=== PATIENT | female | born 1990 | race Caucasian/White ===

== ENCOUNTER 2020-10-08 10:27 | Outpatient (CLI) | payer OTHER ==
[2020-10-08 10:58] VITALS: BP 117/66
[2020-10-08 11:01] LABS: BILIRUBIN,URINE NEGATIVE (NEGATIVE); CLARITY,URINE CLEAR (CLEAR); GLUCOSE, URINE (UA) NEGATIVE (NEGATIVE); KETONES,URINE (UA) NEGATIVE (NEGATIVE); LEUKOCYTE ESTERASE, URINE TRACE (NEGATIVE); NITRITE,URINE NEGATIVE (NEGATIVE); OCCULT BLOOD,URINE NEGATIVE (NEGATIVE); PH,URINE 7.5 PH (5.0-7.5); PROTEIN,URINE NEGATIVE (NEGATIVE); UROBILINOGEN,URINE 0.2 (NORMAL) E.U./dL (NORMAL)
[2020-10-08 11:12] LABS: BACTERIA,URINE Rare /HPF (None Seen); RBC,URINE None Seen /HPF (0-5); SQUAMOUS EPITHELIAL CELL,UR FEW Squamous (<= Few); WBC,URINE 0-3 /HPF (0-5)
[2020-10-08 11:20] LABS: RUPTURE OF MEMBRANES PLUS NEGATIVE (NEGATIVE)
--- NOTE | 2020-10-08 12:23 | PROVIDER PROGRESS NOTE ---
- HPI Chief Complaint: Leakage of vaginal fluid Current : Current EDU 02/06/21 Gestation 22 Weeks and 5 Days 1 Para 0 Vital Signs Temperature 99.9 F 10/08/20 10:50 Heart Rate 90 10/08/20 10:50 Respiratory Rate 18 10/08/20 10:50 Blood Pressure 117/66 10/08/20 10:50 O2 Saturation 100 10/08/20 10:50 Temperature 99.9 F 10/08/20 10:50 Heart Rate 90 10/08/20 10:50 Respiratory Rate 18 10/08/20 10:50 Blood Pressure 117/66 10/08/20 10:50 O2 Saturation 100 10/08/20 10:50 - Procedures NST Procedure: EFM 145 mod vr 10x10 and 15x15 accels with decels--> Appropriate for gestational age TOCO: quiet Service Date of procedure: 10/08/20 Procedure Details: Patient is a 29 yo at 22+5 wga here for rule out rupture. Patient received care by the [facility] at [facility]. She and partner are camping in [place] this weekend. Last ngiht patient had some cramping pain that was consistent with "stomach flu". No VB. Did nto progress. This am she pass some fluid that leaked through her undergarments and saoked her pants to about the size of her palm. No further leakage. No further cramping. L ast IC was more than a week ago. Endorses FM. records are not available to us at present. Patient denies significant past medical or surgical history. Reports to be uncomplicated. PMH: none PSH: none OB: G0 SOC HX: Lives in [place] in [facility]. ROS: As per HPI, otherwise remaining systems are negative. PE: VS: 99.9 90 117/66 18 100% GEN: NAD HEENT: NCAT CV: RR RESP: nl effrot ABD: S&NT/ND EXT: WWP NEURO: A&O PSYCH: appropriate affect EFM: 145 mod kiara 10x10 and 15x15 accels occ decels--> appropriate for gestational age TOCO: quiet ROM+ neg UA with trace LE; attributed to lochia. -Cultures pending A?P 29 yo at 22+5 with LOF No consistent fluid loss Neg ROM+ Likely reflects passage of urine No dysuria; will awaiting cultures for trt of any potential UTI Cramping resolved and self-limited Patient not concerned about cramping and is not interested in evaluation for PTL Reviewed warning signs indicating need to return to triage. Patient discharged to home FU with primary OB provider in the absence of recurrent symptoms.
== END 2020-10-08 11:40 | disposition home or self-care (01) ==
LOC: WFO 10:27 → EDBD 10:27 → FBP 10:31 → WFO 11:40
PROVIDERS: ATTEND Obstetrics & Gynecology
DX: O99.891 Other specified diseases and conditions complicating pregnancy (principal); R10.9 Unspecified abdominal pain
CPT/HCPCS: 81001; 84112; 87086; 99212; 99214

== ENCOUNTER 2021-01-14 02:28 | Inpatient (IN) | payer OTHER ==
[2021-01-14] MEDS ORDERED: AMPICILLIN 2 GM VIAL IV ONE (03:16)
[2021-01-14] MEDS ORDERED: LACTATED RINGERS 1,000 ML IV ONE (03:17)
[2021-01-14] MEDS ORDERED: miSOPROStoL 200 MCG TABLET ONE (03:17)
[2021-01-14] MEDS ORDERED: OXYTOCIN/SODIUM CHLORIDE 500 ML IV ONE (03:17)
[2021-01-14] MEDS ORDERED: OXYTOCIN/SODIUM CHLORIDE 500 ML IV PRN (03:34)
[2021-01-14] MEDS ORDERED: fentaNYL 100 MCG/2 ML VIAL IVP PRN (03:34)
[2021-01-14] MEDS ORDERED: CARBOPROST TROMETHAMINE 250 MCG/ML AMP IM PRN (03:34)
[2021-01-14] MEDS ORDERED: OXYTOCIN 10 UNIT/ML VIAL IM PRN (03:34)
[2021-01-14] MEDS ORDERED: SODIUM CHLORIDE FLUSH 0.9% 10 ML SYRINGE IVP PRN (03:34)
[2021-01-14] MEDS ORDERED: METHYLERGONOVINE 0.2 MG/ML VIAL IM PRN (03:34)
[2021-01-14] MEDS ORDERED: miSOPROStoL 200 MCG TABLET BC PRN (03:34)
[2021-01-14] MEDS ORDERED: LIDOCAINE-MPF 1% 30 ML VIAL ID PRN (03:34)
[2021-01-14] MEDS ORDERED: TRANEXAMIC ACID IN NACL 1,000 MG/100 ML BAG IV PRN (03:34)
[2021-01-14] MEDS ORDERED: ONDANSETRON 4 MG/2 ML VIAL IVP PRN ×2 (03:34→05:27)
[2021-01-14] MEDS ORDERED: AMPICILLIN 2 GM in SODIUM CHLORIDE 0.9% MINIBAG 100 ML IV ONE (03:34)
[2021-01-14 03:46] LABS: BASOPHILS % (AUTO) 0.3 %; EOSINOPHILS % (AUTO) 0.1 %; HGB - HEMOGLOBIN 11.2 g/dL (12.0-16.0); LYMPHOCYTES # (AUTO) 1.8 10^3/uL (1.5-3.5); MEAN CORPUSCULAR HEMOGLOBIN 31.7 pg (27.0-31.0); MEAN CORPUSCULAR VOLUME 99.2 fL (81.0-99.0); MEAN PLATELET VOLUME 11.2 fL (7.9-10.8); MONOCYTES # (AUTO) 0.8 10^3/uL (0.0-1.0); MONOCYTES % (AUTO) 6.2 %; NEUTROPHILS # (AUTO) 10.1 10^3/uL (1.5-6.6); NEUTROPHILS % (AUTO) 78.5 %; PLT - PLATELET COUNT 208 10^3/uL (130-450); RED BLOOD COUNT 3.53 10^6/uL (4.20-5.40); RED CELL DISTRIBUTION WIDTH 13.6 % (12.0-15.0); WHITE BLOOD COUNT 12.8 x10^3/uL (4.8-10.8)
[2021-01-14] MEDS ORDERED: LACTATED RINGERS 1,000 ML IV SCH ×2 (04:00→11:00)
[2021-01-14] MEDS ORDERED: ROPIVACAINE 0.2% 200 MG/100 ML BAG EP ONE (04:48)
[2021-01-14] MEDS ORDERED: ROPIVACAINE 0.2% 200 MG/100 ML BAG EP PRN (05:27)
[2021-01-14] MEDS ORDERED: diphenhydrAMINE INJ 50 MG/ML VIAL IVP PRN (05:27)
[2021-01-14] MEDS ORDERED: METOCLOPRAMIDE 10 MG/2 ML VIAL IVP PRN (05:27)
[2021-01-14] MEDS ORDERED: ePHEDrine 50 MG/ML VIAL IVP PRN (05:27)
[2021-01-14] MEDS ORDERED: NALOXONE 0.4 MG/ML VIAL IVP PRN (05:27)
[2021-01-14] MEDS ORDERED: NALBUPHINE 10 MG/ML AMP IVP PRN (05:27)
--- NOTE | 2021-01-14 05:33 | ANESTHESIA ---
Pre-Anesthesia VS, & Labs - Diagnosis labor - Procedure epidural Vital Signs: Temp Pulse Resp BP Pulse Ox 36.9 C 20 01/14/21 03:39 01/14/21 03:39 Height: 5 ft 6 in Weight (kg): 64.41 kg Body Mass Index: 22.8 BMI Classification: Healthy weight - NPO >8 hours - Is Patient ?: Yes - Lab Results Current Lab Results: Laboratory Tests 01/14/21 03:10: WBC 12.8 H, RBC 3.53 L, Hgb 11.2 L, Hct 35.0 L, MCV 99.2 H, MCH 31.7 H, MCHC 32.0, RDW 13.6, Plt Count 208, MPV 11.2 H, Neut # (Auto) 10.1 H, Lymph # (Auto) 1.8, [place] # (Auto) 0.8, Eos # (Auto) 0.0, Baso # (Auto) 0.0, Absolute Nucleated RBC 0.00, Nucleated RBC % 0.0 01/14/21 03:10: Blood Type O POSITIVE, Antibody Screen NEGATIVE Fish Bones: 01/14/21 03:10 Home Medications and Allergies Active Medications Carboprost Tromethamine (Carboprost Tromethamine 250 Mcg/Ml Amp) 250 mcg IM Q15M PRN PRN Reason: Step 4: Hemorrhage protocol Stop: 01/19/21 03:35 Diphenhydramine HCl (Diphenhydramine Inj 50 Mg/Ml Vial) 12.5 - 25 mg IVP Q6HR P RN PRN Reason: ITCHING Ephedrine Sulfate (Ephedrine 50 Mg/Ml Vial) 5 mg IVP Q5M PRN PRN Reason: For SBP<100;give until SBP>100 Fentanyl (Fentanyl 100 Mcg/2 Ml Vial) 50 mcg IVP Q1H PRN PRN Reason: PAIN Oxytocin/Sodium Chloride (Pitocin/Sodium Chloride) 500 mls @ 999 mls/hr IV PRN PRN; Protocol PRN Reason: POST- HEMORR PREVENTION Stop: 01/19/21 03:35 Tranexamic Acid (Tranexamic 1,000 Mg/100ml-Nacl) 1,000 mg in 100 mls @ 600 mls/hr IV .ONCE PRN PRN Reason: EBL >1200mL and within 3hr Stop: 01/19/21 03:35 Lactated Ringer's (Lr) 1,000 mls @ 150 mls/hr IV .Q6H40M JUAN DIEGO Last Admin: 01/14/21 03:12 Dose: 150 mls/hr Documented by: Ropivacaine (Naropin 0.2%) 200 mg in 100 mls @ 0 mls/hr EP PRN PRN; Protocol PRN Reason: PAIN Lidocaine HCl (Lidocaine-Mpf 1% 30 Ml Vial) 30 ml ID .ONCE PRN PRN Reason: PERINEAL REPAIR Stop: 01/19/21 03:35 Methylergonovine Maleate (Methylergonovine 0.2 Mg/Ml Vial) 0.2 mg IM .ONCE PRN PRN Reason: Step 2: Hemorrhage protocol Stop: 01/19/21 03:35 Metoclopramide HCl (Metoclopramide 10 Mg/2 Ml Vial) 10 mg IVP Q6HR PRN PRN Reason: Nausea / Vomiting Misoprostol (Misoprostol 200 Mcg Tablet) 800 mcg BC .ONCE PRN PRN Reason: Step 3: Hemorrhage protocol Stop: 01/19/21 03:35 Nalbuphine HCl (Nalbuphine 10 Mg/Ml Amp) 2.5 - 5 mg IVP Q4H PRN PRN Reason: ITCHING Naloxone HCl (Naloxone 0.4 Mg/Ml Vial) 0.1 mg IVP Q2M PRN PRN Reason: RR<8 Ondansetron HCl (Ondansetron 4 Mg/2 Ml Vial) 4 mg IVP Q4H PRN PRN Reason: Nausea / Vomiting Ondansetron HCl (Ondansetron 4 Mg/2 Ml Vial) 4 mg IVP Q6HR PRN PRN Reason: Nausea / Vomiting Oxytocin (Oxytocin 10 Unit/Ml Vial) 10 unit IM .ONCE PRN PRN Reason: Step one: If no IV access Stop: 01/19/21 03:35 Sodium Chloride (Sodium Chloride Flush 0.9% 10 Ml Syringe) 10 ml IVP PRN PRN PRN Reason: NEEDED PER PROVIDER ORDERS Sodium Chloride (Sodium Chloride Flush 0.9% 10 Ml Syringe) 10 ml IVP 0100,09 00,1700 [facility] Allergies/Adverse Reactions: Allergies Allergy/AdvReac Type Severity Reaction Status Date / Time No Known Drug Allergies Allergy Verified 01/14/21 03:58 Anes History & Medical History - Anesthetic History Anesthesia Complications: reports: No previous complications - Medical History Smoking Status: Never smoker History of Cancer?: No Exam General: Alert Dental: WNL Mouth Opening: Greater than 4 Fingerbreadths Mallampati classification: II Respiratory: Lungs clear Cardiovascular: Regular rate Plan Anesthesia Type: Epidural Consent for Procedure(s) Verified and Reviewed: Yes Code Status: Attempt Resuscitation ASA classification: 2-Mild systemic disease Is this case an emergency?: No
--- NOTE | 2021-01-14 05:54 | HISTORY & PHYSICAL EXAMINATION ---
Admit History - Visit Reason Visit Reason: Membranes rupture - : 1 Parity: 0 Premature: 0 Ectopic: 0 : 0 Care: positive: Other ([facility]) Risk/History: positive: labor <37 weeks Complications This : positive: Other (GBS positive) Smoking Status: Never smoker - Mother's Labs Mother's Blood Type: positive: O Mother's RH: positive: Positive GBS: positive: Group B Strep Positive Rubella Status: positive: Non-immune Meds/Allgy - Allergies Allergies/Adverse Reactions: Allergies Allergy/AdvReac Type Severity Reaction Status Date / Time No Known Drug Allergies Allergy Verified 01/14/21 03:58 Review of Systems - Constitutional Constitutional: denies: Fatigue - Cardiovascular Cariovascular: denies: Irregular heart rate, Palpitations, Chest pain - Respiratory Respiratory: denies: Cough, Sputum production, Wheezing - Gastrointestinal Gastrointestinal: denies: Abdominal pain - Genitourinary Genitourinary: denies: Dysuria, Frequency - Musculoskeletal Musculoskeletal: denies: Muscle pain - Integumentary Integumentary: denies: Rash - Neurological Neurological: denies: General weakness - All Other Systems All Other Systems: reports: Reviewed and negative Physical - Abdominal Exam Vital Signs: Temp Pulse Resp BP Pulse Ox 98.5 F 20 01/14/21 03:39 01/14/21 03:39 Contraction Frequency (min/apart): Every 1-2 minutes on admission Contraction Intensity: positive: Mild to moderate Uterine Resting Tone: positive: Soft - Monitoring Heart Rate Baseline: 135 Strip Review: positive: Category I - Presentation Presentation: positive: Vertex - Vaginal Exam Membranes: positive: Membranes ruptured Dilation (in cm): 4-5 Effacement (%): 50 Station: positive: -2 (On admission, patient was 4-5/50/-2.) Cervical Position: positive: Midposition - Speculum Exam Speculum Exam Performed: positive: No Findings: positive: Gross leak - Other Notes Labor Progress Note/Additional Text: 30 yo at 36 5/7 weeks had SROM at 11:00pm on 01/13/21. Patient had care at [facility] in [place]. Patient started having contractions and came to Labor and Delivery. Patient is 4-5cm on admission. Patient is higinio every 1-3 minutes. Patient would like an epidural. Patient is GBS positive and O + blood type. Patient is Rubella non-immune. Patient has received two doses of COVID-19 vaccine. Plan for Labor - Plan For Labor Plan for Labor: A-IUP 36 09/16 with Rupture of Membranes. P- Expectant Management. Anticipate .
--- NOTE | 2021-01-14 06:07 | PROVIDER PROGRESS NOTE ---
Labor Progress Note - Uterine Monitoring Contraction Intensity: positive: Moderate to strong Uterine Resting Tone: positive: Soft - Monitoring Monitor Mode: positive: External ultrasound Heart Rate Variability: positive: Moderate (6-25 bmp) Accelerations: positive: Present, 15x15 Decelerations: positive: None Strip Review: positive: Category I - Vaginal Exam Dilation (in cm): Complete Effacement (%): 100% Station: 1 - Labor Progress Note Labor Progress Note/Additional Text: Patient had epidural placed and was Anterior lip at 2:20 am. Patient was re- examined and found to be complete and 1+ station. Monitor is Category I with Contractions every 1-2 minutes. Patient is feeling some pressure with contractions. Discussed we won't make 4 hour of Antibiotic treatment so infant will have to stay 48 hours after . A- IUP 36 5/7 with Active labor, ROM, GBS positive not completely treated at this time. P- Anticipate , do not believe we can make it until 7:10 am which is 4 hour of antibiotic treatment.
[2021-01-14] MEDS ORDERED: AMPICILLIN 1 GM in SODIUM CHLORIDE 0.9% MINIBAG 100 ML IV STA (06:33)
[2021-01-14] MEDS ORDERED: OXYTOCIN/SODIUM CHLORIDE 500 ML IV SCH (09:00)
[2021-01-14] MEDS ORDERED: SODIUM CHLORIDE FLUSH 0.9% 10 ML SYRINGE IVP SCH (09:00)
--- NOTE | 2021-01-14 09:51 | DELIVERY NOTE ---
Delivery Note - Labor Labor: positive: Spontaneous, Augmented by oxytocin - Delivery Method Delivery Method: positive: Spontaneous vaginal delivery - Presentation Presentation: positive: Vertex, OA - occiput anterior - Nuchal Cord Nuchal Cord: positive: None - Anesthetic Anesthetic Type: Anesthetic: positive: Lidocaine - 1% plain, Other (Epidural) Volume: positive: Other (15cc) - Amniotic Fluid Description Amniotic Fluid Description: positive: Clear - Episiotomy Type Episiotomy Type: positive: None - Laceration Laceration: positive: Periurethral, Vaginal - Suture Suture Size: positive: 2-0, 3-0 - Delivery Outcome Delivery Outcome: positive: Livebirth - : positive: Placed in direct skin contact with mother [place] sex: positive: Female - Cord Cord: positive: 3 vessels - Placenta Placenta: positive: Intact, Spontaneous - Estimated Blood Loss Estimated Blood Loss (in cc): 200 - Post Delivery Events Post Delivery Events: positive: No post delivery events - Delivery Comments (Free Text/Narrative) Delivery Comments (Free Text/Narrative): Patient presented with SROM and [email or web address] Patient had care at [facility] in [place]. Patient and were visiting [facility] for the weekend. Patient was 4-5 cm on admission. Patient progressed and had epidural placed. Patient was GBS positive and had Antibiotics given at 3:10am. Second dose of Antibiotics given at 6:45am. Patient progressed to complete. It was decided to not begin pushing until after 4 hour abena of first dose of Antibiotics. Patient pushed for 2 hours and one minute. Patient pushed head to 3+ station. over intact perineum. Head delivered in OA position. Maternal forces delivered anterior shoulder under pubic bone. Remainder of delivered spontaneously. was placed on mother's abdomen. Delayed cord clamping for 2 minutes. Cord was clamped times two and cut by father of baby. Pitocin started in IV. There was brisk bleeding from right periurethral area. 1% Lidocaine was injected into the periurethral lacerations. 2-0 Vicryl in running fashion was utilized to repair larger, periurethral/vaginal laceration. 3-0 Vicryl was utilized to repair the Periurethral laceration in the midline that went to the apex. The placenta delivered spontaneously, intact, JENN 19 minutes after at 9:33am. Cervix was inspected and found to be intact. There was a right vaginal palceration that required three sutures to obtain hemostasis. There was a left vaginal sidewall/periurethral laceration that required on suture of 2-0 Vicryl to obtain hemostasis. Suprapubic pressure and fundal massage was performed. Uterus was firm and below the umbilicus according to RN. EBL is 200cc. Instrument, sponge and needle counts were correct. Mother is resting in stable condition.
[2021-01-14] MEDS: ACETAMINOPHEN 325 MG TABLET PO PRN ×3 (10:51→21:03)
[2021-01-14] MEDS: IBUPROFEN 600 MG TABLET PO SCH ×2 (10:51→18:20)
[2021-01-15] MEDS: IBUPROFEN 600 MG TABLET PO SCH ×5 (00:14→23:55)
[2021-01-15] MEDS: ACETAMINOPHEN 325 MG TABLET PO PRN (03:11)
[2021-01-15 05:49] LABS: BASOPHILS # (AUTO) 0.1 10^3/uL (0.0-0.1); BASOPHILS % (AUTO) 0.5 %; EOSINOPHILS # (AUTO) 0.1 10^3/uL (0.0-0.7); EOSINOPHILS % (AUTO) 0.5 %; HCT - HEMATOCRIT 31.6 % (37.0-47.0); HGB - HEMOGLOBIN 10.5 g/dL (12.0-16.0); LYMPHOCYTES # (AUTO) 2.3 10^3/uL (1.5-3.5); LYMPHOCYTES % (AUTO) 17.2 %; MEAN CORPUSCULAR HEMOGLOBIN 32.9 pg (27.0-31.0); MEAN CORPUSCULAR HGB CONC 33.2 g/dL (32.0-36.0); MEAN CORPUSCULAR VOLUME 99.1 fL (81.0-99.0); MEAN PLATELET VOLUME 10.6 fL (7.9-10.8); MONOCYTES % (AUTO) 7.8 %; NEUTROPHILS # (AUTO) 9.6 10^3/uL (1.5-6.6); NEUTROPHILS % (AUTO) 72.9 %; PLT - PLATELET COUNT 187 10^3/uL (130-450); RED BLOOD COUNT 3.19 10^6/uL (4.20-5.40); RED CELL DISTRIBUTION WIDTH 13.5 % (12.0-15.0); WHITE BLOOD COUNT 13.2 x10^3/uL (4.8-10.8)
--- NOTE | 2021-01-15 11:07 | PROVIDER PROGRESS NOTE ---
Subjective - Prog Note Date Prog Note Date: 01/15/21 Prog Note Time: 11:05 - Subjective Pt reports feeling: Improved Subjective: Patient is sitting in room and states she is doing good. Patient is ambulating, urinating and tolerating a regular diet. Patient is breast feeding. Patient states pain is controlled. Patient states vaginal bleeding is light. Objective - Vital Signs/Intake & Output Reviewed Vital Signs: Yes Vital Signs: Vital Signs x48h Temp Pulse Resp BP Pulse Ox 01/15/21 08:36 98.2 F 72 16 120/70 100 Intake & Output: Intake & Output 01/12/21 01/13/21 01/14/21 01/15/21 23:59 23:59 23:59 23:59 Intake Total 2151.2 300 Output Total 1000 Balance 1151.2 300 - Objective General Appearance: positive: No acute distress Respiratory: positive: Breath sounds nml. negative: Wheezes, Rales Cardiovascular: positive: Regular rate & rhythm, No murmur, No gallop Abdomen: positive: Non-tender, Nml bowel sounds, Other (Fundus is firm and below the umbilicus.) Extremities: positive: No pedal edema. negative: Calf tenderness Neurologic/Psychiatric: positive: Oriented x3, Mood/affect nml Reflexes: Knee (R): 2+ - Lab Results Fish Bones: 01/15/21 05:43 Other Labs: Lab Results x24hrs 01/15/21 01/15/21 Range/Units 05:43 05:43 WBC 13.2 H (4.8-10.8) x10^3/uL RBC 3.19 L (4.20-5.40) 10^6/uL Hgb 10.5 L (12.0-16.0) g/dL Hct 31.6 L (37.0-47.0) % MCV 99.1 H (81.0-99.0) fL MCH 32.9 H (27.0-31.0) pg MCHC 33.2 (32.0-36.0) g/dL RDW 13.5 (12.0-15.0) % Plt Count 187 (130-450) 10^3/uL MPV 10.6 (7.9-10.8) fL Neut # (Auto) 9.6 H (1.5-6.6) 10^3/uL Lymph # (Auto) 2.3 (1.5-3.5) 10^3/uL [place] # (Auto) 1.0 (0.0-1.0) 10^3/uL Eos # (Auto) 0.1 (0.0-0.7) 10^3/uL Baso # (Auto) 0.1 (0.0-0.1) 10^3/uL Absolute Nucleated RBC 0.00 x10^3/uL Nucleated RBC % 0.0 /100WBC Blood Type Recheck O POSITIVE - Other Results/Comments Other Results/Comments: A-S/ day 1 doing well. Patient would like to be discharged tomorrow. P- Routine Care. Plan to discharge tomorrow.
[2021-01-16] MEDS: IBUPROFEN 600 MG TABLET PO SCH ×3 (08:04→19:19)
--- NOTE | 2021-01-16 12:28 | DISCHARGE SUMMARY ---
Discharge Summary Admit Date: 01/14/21 Discharge Date: 01/16/21 Discharging Provider: Hillary Ugarte DO Code Status: Attempt Resuscitation Condition at Discharge: Good Discharge Disposition: 01 Home, Self Care Discharge Facility Name: [facility]. - DIAGNOSES Admission Diagnoses: IUP 36 5/7 in Active labor. Spontaneous Rupture of Membranes. Discharge Diagnoses with Status of Each Condition: S/P with vaginal laceration repairs. - HPI History of Present Illness: 30 yo at 36 5/7 with Care in [place], [place]. Presented with SROM at 2300 on Saturday01/13/2021. Patient started feeling contractions and presented to [facility] where she was admitted in active labor. - HOSPITAL COURSE Hospital Course: Patient was admitted with , Spontaneous ROM and active labor. Patient progressed in a normal fashion. Patient had epidural placed. Patient was GBS positive and full treatment of 4 hours of antibiotics was at 7:12am. Patient held off pushing until this time. Patient had a 2 hour second stage of labor. Patient had a over intact perineum. Living female who weighed 7# 3oz. Patient has had a routine course. Patient is ambulating, urinating, and tolerating a regular diet without difficulty. Patient has pain controlled with Motrin 600mg po every 6 hours. Patient states her lochia is not heavy. Patient is breast feeding and supplementing with formula. - ALLERGIES Allergies/Adverse Reactions: Allergies Allergy/AdvReac Type Severity Reaction Status Date / Time No Known Drug Allergies Allergy Verified 01/14/21 03:58 - PHYSICAL EXAM AT DISCHARGE General Appearance: positive: No acute distress Respiratory: positive: Breath sounds nml. negative: Wheezes, Rales Cardiovascular: positive: Regular rate & rhythm, No murmur, No gallop Abdomen: positive: Non-tender, Nml bowel sounds, Other (Fundus is firm and below the umbilicus.) Skin: positive: Color nml Extremities: positive: Nml appearance, No pedal edema. negative: Calf tenderness Neurologic/Psychiatric: positive: Oriented x3, Mood/affect nml - LABS Result Diagrams: 01/15/21 05:43 - QUALITY (Female Hip Fx Only) Was patient sent home on osteoporosis medication?: No - FOLLOW UP Follow Up: Follow-up at her OB Provider clinic in one week. 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 Discussed Pelvic rest for 6 weeks. Discussed that sutres will dissolve on their own. - TIME SPENT Time Spent in Discharge (Minutes): 30
--- NOTE | 2021-01-16 12:38 | Discharge Plan ---
Discharge Plan Problem Reviewed?: Yes Disposition: Home, Self Care Condition: Good Diet: Regular Activity Restrictions: Pelvic Rest Shower Restrictions: No Weight Bearing: Full Weight No Smoking: If you smoke, Please STOP! Call for help.
[2021-01-16] MEDS ORDERED: MEASLES,MUMPS & RUBELLA VACC 0.5 ML VIAL SUBQ ONE (14:58)
[2021-01-16 17:50] VITALS: BP 120/67
== END 2021-01-16 17:55 | disposition home or self-care (01) | DRG 806 ==
LOC: WFO 02:28 → FBP 02:30 → WFO 02:59 → FBP 03:00
PROVIDERS: ADMIT Obstetrics & Gynecology; ATTEND Obstetrics & Gynecology
PROC: 0UQMXZZ Repair Vulva, External Approach (ICD-10-PCS; principal; 2021-01-14)
PROC: 10E0XZZ Delivery of Products of Conception, External Approach (ICD-10-PCS; 2021-01-14)
PROC: 0UQG7ZZ Repair Vagina, Via Natural or Artificial Opening (ICD-10-PCS; 2021-01-14)
DX: O42.013 Preterm premature rupture of membranes, onset of labor within 24 hours of rupture, third trimester (principal); O71.4 Obstetric high vaginal laceration alone; Z37.0 Single live birth; O71.82 Other specified trauma to perineum and vulva; O99.824 Streptococcus B carrier state complicating childbirth; Z3A.36 36 weeks gestation of pregnancy
CPT/HCPCS: 36415; 85025; 86850; 86900; 86901; A9270; J7120; 99211